=== PATIENT | female | born 1990 | race Caucasian/White ===

== ENCOUNTER → 2018-10-11 19:59 | Outpatient (CLI) | payer SELFPAY | PROVIDERS: Visit Provider Physician Assistant | DX: J02.9 Acute pharyngitis, unspecified (principal) | CPT/HCPCS: 87070 ==

== ENCOUNTER → 2018-12-11 17:23 | Outpatient (CLI) | payer SELFPAY ==
[2018-12-11 21:40] LABS: Urine N gonorrhoeae NOT DETECTED
[2018-12-11 21:58] LABS: Urine Chlamydia NOT DETECTED
== END ==
PROVIDERS: Visit Provider Physician Assistant
DX: N89.8 Other specified noninflammatory disorders of vagina (principal); R30.0 Dysuria
CPT/HCPCS: 87210; 87491; 87591

== ENCOUNTER → 2020-01-10 11:11 | Outpatient (CLI) | payer OTHER, SELFPAY ==
[2020-01-10 11:49] LABS: Specimen Label NATERA
[2020-01-10 12:12] LABS: Appearance Urine UA CLEAR; Bilirubin Urine UA NEGATIVE (NEGATIVE); Color Urine UA YELLOW; Glucose Urine UA NEGATIVE (Negative); Ketones Urine UA NEGATIVE (NEGATIVE); Leukocyte Esterase Urine UA NEGATIVE (NEGATIVE); Nitrite Urine UA NEGATIVE (Negative); Occult Blood Urine UA NEGATIVE (Negative); Protein Urine UA NEGATIVE (Negative); Specific Gravity Urine UA 1.025 (1.000-1.035); Urobilinogen Urine UA 0.2 E.U./dL (0.2)
[2020-01-10 12:19] LABS: pH Urine UA 6.5 (4.5-8.0)
[2020-01-10 12:35] LABS: Add Manual Diff / Slide Review NO; Basophils Absolute Auto 100 /uL (0-100); Basophils Percent Auto 0.6 % (0-2); Eosinophils Absolute Auto 200 /uL (0-450); Eosinophils Percent Auto 1.5 % (2-4); Hemoglobin 12.8 g/dL (12.0-16.0); Lymphocytes Absolute Auto 1800 /uL (1100-4500); Lymphocytes Percent Auto 15.8 % (25-40); Mean Corpuscular HGB Conc 34.5 % (30-36); Mean Corpuscular Hemoglobin 31.2 PG (26-34); Mean Corpuscular Volume 90.3 fL (80-100); Monocytes Absolute Auto 600 /uL (0-900); Neutrophils Absolute Auto 8700 /uL (1500-7000); Neutrophils Percent Auto 77.1 % (50-75); Platelet Count 291 X10^3/uL (150-400); Red Cell Distribution Width 13.2 % (11.6-14.8); White Blood Cell Count 11.3 X10^3/uL (4.5-11.0)
[2020-01-10 16:09] LABS: Hepatitis B Surface Antigen NEGATIVE s/c (NEGATIVE); Rubella Antibody IgG 84.4 IU/mL (>15)
[2020-01-10 16:36] LABS: HIV 1 & 2 Ab/Ag 4th Gen Combo NEGATIVE (NEGATIVE); Hep C Virus Ab w/Reflex Quant NEGATIVE s/c (NEGATIVE)
[2020-01-12 20:54] LABS: RPR Screen Nonreactive (Nonreactive)
== END ==
PROVIDERS: Referring Provider Obstetrics & Gynecology; Visit Provider Obstetrics & Gynecology
DX: Z34.81 Encounter for supervision of other normal pregnancy, first trimester (principal)
CPT/HCPCS: 36415; 80055; 81003; 86787; 86803; 86850; 86900; 86901; 87086; 87389

== ENCOUNTER 2020-02-09 12:05 | Outpatient (CLI) | payer OTHER, SELFPAY ==
--- NOTE | 2020-02-09 13:00 | PM.OBTRLD ---
Visit Information Visit Information Date of evaluation: 02/09/20 Primary OB Provider: Yamileth Pierce On-call OB Provider: Carissa Browning Reason for Evaluation: Yes rupture of membranes Comments/Additional reasons for admission: Patient is 16 weeks and was concerned about leaking of fluid. She called and was prompted to come to the center. Of note, she had a cerclage placed on 02/03/20. The first few days after the cerclage she had some light bleeding. The past 3 or 4 days she has had yellowish discharge without associated itching or foul odor. She was concerned about rupture of membranes. She is monogamous with her and denies concern for sexually transmitted infections. She has also felt a bit crampy since the cerclage but no some amount of that is normal. Vital Signs Vital Signs: Temperature 97.6? blood pressure 108/61 heart rate 75 PFSH Medical History Benign heart murmur (Acute ~2013) Hyperemesis gravidarum (Acute ~2013) Incompetent cervix in (Acute ~2009) Kidney infection (Acute) delivery (Acute) (spontaneous vaginal delivery) (Acute) Surgical History History of cervical cerclage (Acute ~2013) Family History Mother Hyperthyroidism Hypothyroidism Father Hypertension Grandfather Heart disease Grandmother Dementia Tremors of nervous system Grandfather No problems noted. Grandmother No problems noted. 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 ) current occupational exposures/hazards: No special bess needs: No Smoking Status: Never smoker second hand exposure: No alcohol intake: former (non- and occasional) substance use type: does not use and marijuana (former) Evaluation Evaluation Comments: heart tones in the 150s on Doppler Diagnosis, Plan/Disposition Final Diagnosis (1) 16 weeks gestation of : Current Visit: No Status: Acute (2) Cervical cerclage suture present: Current Visit: No Status: Acute (3) Vaginal discharge: Current Visit: No Status: Acute Plan/Disposition Plan: Currently 16 weeks and 2 days with complaints of watery vaginal discharge in the context of cerclage placement a week ago. AmniSure was negative for rupture of membranes. FHT 150s with the doppler. Wet mount showed clue cells so will treat bacterial vaginosis with metronidazole. UA appeared contaminated so was not sent for culture. Patient was sent home and advised to follow-up in clinic next week. OB Disposition: home
[2020-02-09 13:15] LABS: Appearance Urine UA CLOUDY; Bilirubin Urine UA NEGATIVE (NEGATIVE); Color Urine UA YELLOW; Glucose Urine UA NEGATIVE (Negative); Ketones Urine UA NEGATIVE (NEGATIVE); Leukocyte Esterase Urine UA TRACE (NEGATIVE); Nitrite Urine UA NEGATIVE (Negative); Occult Blood Urine UA 1+ (Negative); Protein Urine UA TRACE (Negative); Urobilinogen Urine UA 0.2 E.U./dL (0.2)
[2020-02-09 13:24] LABS: Amorphous Sediment Urine 2+; Bacteria Urine Few (2-10); Culture Indicated Urine Cult Not Indicated; RBC Urine 0-1/HPF (0-5/HPF); Squamous Epithelial Cell Urine 10-30 /HPF (0-5/HPF); Transitional Epi Cells Urine 1-5/HPF (0-5/HPF); WBC Urine 0-1/HPF (0-5/HPF)
== END 2020-02-09 13:10 | disposition home or self-care (01) ==
LOC: LABOR 12:11 → OB 02-10 08:46
PROVIDERS: Family Medicine
DX: O26.892 Other specified pregnancy related conditions, second trimester (principal); N89.8 Other specified noninflammatory disorders of vagina; O34.32 Maternal care for cervical incompetence, second trimester; Z3A.16 16 weeks gestation of pregnancy
CPT/HCPCS: 59025; 81001; 84112; 87210; G0378; G0379

== ENCOUNTER → 2020-03-06 14:09 | Outpatient (CLI) | payer OTHER, SELFPAY ==
--- NOTE | 2020-03-06 14:10 | DI.US.S_ITS ---
PROCEDURE: US OB >= 14 WEEKS FETUS INDICATIONS: 20 WEEK ANATOMY SCAN OUTSIDE/PRIOR DATING DATA: Last menstrual period (LMP): Unknown. LMP-based estimated date of delivery (DORA): Not applicable. First dating scan (date and location): 12/20/19. Estimated date of delivery (DORA) from first dating scan: 07/24/20. TECHNIQUE: Real-time scanning was performed of the fetus, with image documentation and biometric measurements. Endovaginal scanning: Not performed COMPARISON: None. FINDINGS: General: A single living intrauterine gestation is present. Presentation: Vertex. Placenta: Placental position is anterior, without previa. Lower placental edge 2 cm or less from internal cervical os qualifies as low lying placenta. Amniotic fluid index: 15.4 cm, normal range is 5-24 cm. heart rate: 155 beats per minute. Maternal cervical canal: 3.4 cm long. Normal lower limit is 2.5 cm. Report any funneling of internal cervical os: % of canal length, shape (U or V), width or any U-shaped funneling. biometrics: Biparietal diameter: 4.8 cm, correlating with 20 weeks and 4 days Head circumference: 18.5 cm, correlating with 20 weeks and 6 days Abdominal circumference: 16.6 cm, correlating with 21 weeks and 5 days Femur length: 3.3 cm, correlating with 20 weeks and 2 days Estimated gestational age from initial scan: not applicable. Composite gestational age from present scan: 20 weeks and 5 days Estimated weight and percentile: 392 g which [address] the fetus within the 93rd percentile based off gestational age. Measurement variability for biometric dating: +/- 7 days from 14 weeks to 15 weeks 6 days gestation, +/- 10 days from 16 weeks to 21 weeks 6 days gestation, +/- 2 weeks from 22 weeks to 27 weeks 6 days gestation, +/- 3 weeks for 28 weeks gestation or later. weight reference: 4500 g or EFW >90/95% is considered macrosomia or large for gestational age. EFW <10% is small for gestational age. EFW 5% or less is considered intra-uterine growth restriction. Anatomic survey: Neuro: Ventricles are non-dilated at less than 10 mm. Cisterna magna is normal at 3-11 mm. Cerebellum is normal in size and morphology. Nuchal skin fold: Normal at less than 6 mm between 14-21 weeks gestational age. Face: Nose and lips, facial profile are normal. Spine: No evidence for spina bifida. Heart: 4-chambered heart is present, with normal ventricular outflow tracts. Diaphragm: Diaphragm is intact. Stomach: Left-sided stomach is present. Kidneys: No hydronephrosis. Normal is less than 5 mm in 2nd trimester, less than 7 mm in 3rd trimester. Cord: 3-vessel cord has orthotopic insertion. Bladder: Normal in size. Extremities: All 4 extremities identified. IMPRESSION: 1. Single living intrauterine gestation with an estimated sonographic gestational age of approximately 20 weeks and 5 days. Estimated gestation age based off last menstrual period is approximately 20 weeks and 0 days. Dating is concordant. 2. Estimated weight of 392 g which places the fetus within the 93rd percentile based off gestational age. 3. Unremarkable anatomic screening survey. Dictated by: Aryan Price M.D. on 03/06/2020 at 17:09 Approved by: Aryan Price M.D. on 03/06/2020 at 17:14
== END ==
PROVIDERS: Referring Provider Obstetrics & Gynecology; Visit Provider Obstetrics & Gynecology
DX: Z34.82 Encounter for supervision of other normal pregnancy, second trimester (principal); Z3A.20 20 weeks gestation of pregnancy
CPT/HCPCS: 76811

== ENCOUNTER 2020-04-04 17:31 | Emergency (ER) | payer OTHER, SELFPAY ==
[2020-04-04 17:33] VITALS: BP 126/71; PULSE 122; RESP 18; TEMP 36.7; O2SAT 98
[2020-04-04 17:57] LABS: Add Manual Diff / Slide Review NO; Basophils Absolute Auto 100 /uL (0-100); Basophils Percent Auto 0.5 % (0-2); Eosinophils Absolute Auto 100 /uL (0-450); Eosinophils Percent Auto 1.3 % (2-4); Hematocrit 33.9 % (36-46); Lymphocytes Absolute Auto 1800 /uL (1100-4500); Lymphocytes Percent Auto 15.2 % (25-40); Mean Corpuscular HGB Conc 35.5 % (30-36); Mean Corpuscular Hemoglobin 32.3 PG (26-34); Monocytes Absolute Auto 800 /uL (0-900); Monocytes Percent Auto 6.7 % (3-14); Neutrophils Absolute Auto 8800 /uL (1500-7000); Neutrophils Percent Auto 76.3 % (50-75); Platelet Count 325 X10^3/uL (150-400); Red Blood Cell Count 3.72 X10^6/uL (4.0-5.2); Red Cell Distribution Width 13.7 % (11.6-14.8); White Blood Cell Count 11.6 X10^3/uL (4.5-11.0)
[2020-04-04 18:04] LABS: Alanine Aminotransferase 12 IU/L (<35); Albumin 4.1 g/dL (3.5-5.0); Albumin Globulin Ratio 1.2 (1.0-2.8); Alkaline Phosphatase 60 U/L (38-126); Aspartate Aminotransferase 21 IU/L (14-36); Bilirubin Total 0.2 mg/dL (0.2-1.3); Blood Urea Nitrogen 9 mg/dL (7-17); Calcium 9.8 mg/dL (8.4-10.2); Carbon Dioxide 22 mmol/L (22-32); Chloride 105 mmol/L (98-107); Estimated Glomerular Filt Rate > 60.0 mL/min (>60); Globulin 3.4 g/dL (1.7-4.1); Glucose 106 mg/dL (70-100); HEMOLYSIS < 15 (0-50); Lipase 94 U/L (23-300); Potassium 4.3 mmol/L (3.4-5.1); Sodium 136 mmol/L (137-145); Total Protein 7.5 g/dL (6.3-8.2)
--- NOTE | 2020-04-04 18:07 | ED.ABDPAIN ---
HPI - Abdominal Pain General Chief Complaint: Abdominal Pain Stated Complaint: Possible gall bladder issue, abdominal pain Time Seen by Provider: 04/04/20 18:05 Source: patient Mode of arrival: Ambulatory Limitations: no limitations History of Present Illness HPI narrative: 29-year-old female daily smoker is at 24 weeks with chief complaint of right upper quadrant pain that started this morning after eating a breakfast of [employer]. She states that for much of her she was at episodes of nausea that initially were treated with Zofran and now a combination of vitamin-B and Unisom which she states works better. She denies that use of alcohol and has never had a diagnosis of gallbladder disease. She states her pain is worse when she moves and improves with rest. She denies associated fever chills. She has no dysuria, frequency or urgency. She has no constipation or diarrhea. She denies any vaginal bleeding, discharge or leakage of fluid. Her OB is Dr. Pierce. complaint: abdominal pain Onset (ago): hour(s) Pain Consistency: constant Location: RUQ Severity: moderate Quality: cramping and stabbing Radiation: back Migration to: no migration Relieving factors: rest Exacerbating factors: eating and movement Associated symptoms: nausea Related Data Home Medications Medication Instructions Recorded Confirmed prenat.vits,mati,[id number] 1 tab PO BEDTIME 12/14/19 04/04/20 pyridoxine (vitamin B6) 25 mg 25 mg PO BEDTIME 12/14/19 04/04/20 tablet doxylamine succinate [Unisom 25 mg PO BEDTIME PRN 04/04/20 04/04/20 (doxylamine)] Allergies Allergy/AdvReac Type Severity Reaction Status Date / Time No Known Drug Allergies Allergy Verified 12/14/19 15:40 Review of Systems Constitutional Constitutional: Denies chills, Denies fatigue, Denies fever(s), Denies frequent falls, Denies lethargy and Denies weakness Eyes Eyes: Denies change in vision, Denies eye discharge, Denies irritation and Denies loss of vision ENT Ears, Nose, Mouth, and Throat: Denies change in voice, Denies dizziness, Denies neck pain, Denies sore throat and Denies throat swelling Cardiovascular Cardiovascular: Denies chest pain, Denies irregular heart rhythm, Denies lightheadedness, Denies palpitations, Denies dyspnea, Denies dyspnea on exertion and Denies orthopnea Respiratory Respiratory: Denies cough, Denies dyspnea, Denies dyspnea on exertion and Denies wheezing Gastrointestinal Gastrointestinal: Reports abdominal pain, Denies change in bowel habits, Denies diarrhea, Reports nausea and Denies vomiting Genitourinary Genitourinary: Denies hematuria, Denies flank pain, Denies urinary incontinence and Denies urinary urgency Musculoskeletal Musculoskeletal: Denies back pain, Denies muscle weakness, Denies neck pain, Denies numbness and Denies tingling Integumentary/Breasts Skin/Breast: Denies pruritus, Denies erythema, Denies rash and Denies wounds Neurologic Neurologic: Denies behavioral changes, Denies confusion, Denies dizziness, Denies frequent falls, Denies loss of vision, Denies numbness, Denies tingling and Denies weakness Psychiatric Psychiatric: Denies anxiety, Denies behavioral changes, Denies confusion, Denies depression, Denies homicidal ideation and Denies suicidal ideation Endocrine Endocrine: Denies fatigue, Denies flushing and Denies palpitations Hematologic/Lymphatic Hematologic/Lymphatic: Denies easy bruising Allergic/Immunologic Allergic/Immunologic: Denies urticaria, Denies throat swelling and Denies wheezing Patient History Medical History Benign heart murmur (Acute ~2013) Hyperemesis gravidarum (Acute ~2013) Incompetent cervix in (Acute ~2009) Kidney infection (Acute) delivery (Acute) (spontaneous vaginal delivery) (Acute) Surgical History History of cervical cerclage (Acute ~2013) Family History Mother Hyperthyroidism Hypothyroidism Father Hypertension Grandfather Heart disease Grandmother Dementia Tremors of nervous system Grandfather No problems noted. Grandmother No problems noted. 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 Well-nourished, well-developed patient, in mild distress. Obviously uncomfortable, rubbing her right upper belly HEAD: Atraumatic. Normocephalic. EYES: Pupils equal round and reactive. Extraocular motions intact. No scleral icterus. No injection or drainage. ENT: Nose without bleeding, purulent drainage. Throat without erythema, tonsillar hypertrophy or exudate. Airway patent. NECK: Trachea midline. Non tender CARDIOVASCULAR: Regular rate and rhythm without murmurs, gallops, or rubs. RESPIRATORY: Clear to auscultation. Breath sounds equal bilaterally. No wheezes, rales, or rhonchi. GASTROINTESTINAL: Abdomen soft, gravid above umbilicus, RUQ tender to palp. EXTREMITIES: No edema or joint tenderness. BACK: Nontender without deformity or crepitance. No flank tenderness. NEURO: AOx3. SKIN: No rash or erythema of visible areas Initial Vital Signs Initial Vital Signs: Vital Signs Temperature 98.0 F 04/04/20 17:33 Pulse Rate 122 H 04/04/20 17:33 Respiratory Rate 18 04/04/20 17:33 Blood Pressure 126/71 04/04/20 17:33 Pulse Oximetry 98 04/04/20 17:33 Course Orders Ordered: ED Orders 04/04/20 18:23 US abdomen limited Stat Discontinued Medications Sodium Chloride (Normal Saline 0.9%) 1,000 mls @ 150 mls/hr IV CONT TRICIA Last Infusion: 04/04/20 19:19 Dose: 0 mls/hr Documented by: Infusion: 04/04/20 18:56 Dose: 999 mls/hr Documented by: Admin: 04/04/20 18:19 Dose: 150 mls/hr Documented by: RALPH Vital Signs Vital signs: Vital Signs - 8 hr 04/04/20 18:58 Pulse Rate 79 Respiratory Rate 14 Blood Pressure [Left Arm] 114/70 Pulse Oximetry 99 MDM - Abdominal Pain Lab Data Result diagrams: 04/04/20 17:53 04/04/20 17:53 Labs: Lab Results 04/04/20 04/04/20 Range/Units 17:53 17:53 WBC 11.6 H (4.5-11.0) X10^3/uL RBC 3.72 L (4.0-5.2) X10^6/uL Hgb 12.0 (12.0-16.0) g/dL Hct 33.9 L (36-46) % MCV 91.0 (80-100) fL MCH 32.3 (26-34) PG MCHC 35.5 (30-36) % RDW 13.7 (11.6-14.8) % Plt Count 325 (150-400) X10^3/uL Neut % (Auto) 76.3 H (50-75) % Lymph % (Auto) 15.2 L (25-40) % [place] % (Auto) 6.7 (3-14) % Eos % (Auto) 1.3 L (2-4) % Baso % (Auto) 0.5 (0-2) % Neut # (Auto) 8800 H (8343-0647) /uL Lymph # (Auto) 1800 (1577-9322) /uL [place] # (Auto) 800 (0-900) /uL Eos # (Auto) 100 (0-450) /uL Baso # (Auto) 100 (0-100) /uL Sodium 136 L (137-145) mmol/L Potassium 4.3 (3.4-5.1) mmol/L Chloride 105 (98-107) mmol/L Carbon Dioxide 22 (22-32) mmol/L BUN 9 (7-17) mg/dL Creatinine 0.45 L (0.52-1.04) mg/dL Estimated GFR > 60.0 (>60) mL/min BUN/Creatinine Ratio 20.0 (6-22) Glucose 106 H (70-100) mg/dL Calcium 9.8 (8.4-10.2) mg/dL Total Bilirubin 0.2 (0.2-1.3) mg/dL AST 21 (14-36) IU/L ALT 12 (<35) IU/L Alkaline Phosphatase 60 (38-126) U/L Total Protein 7.5 (6.3-8.2) g/dL Albumin 4.1 (3.5-5.0) g/dL Globulin 3.4 (1.7-4.1) g/dL Albumin/Globulin Ratio 1.2 (1.0-2.8) Lipase 94 (23-300) U/L Discharge Plan Departure Patient Disposition: Home Clinical Impression: Gallbladder pain Discharge Date/Time: 04/04/20 19:21 Instructions: Acute Abdominal Pain Activity Restrictions/Additional Instructions: *You have been diagnosed with [ Right upper quadrant pain, likely relating to gallbladder.] *What to do: *Continue to take medications as directed. Avoid fatty foods as they will likely trigger similar episodes *Follow up with your primary care provider in 2-3 days, call for an appointment. Let them know you were seen in the Emergency Department and that we ask that you be seen in follow up *Return to ER if you should have any new, worsening or concerning symptoms Prescriptions: No Action prenat.vits,mati,[id number] Tablet 1 tab PO BEDTIME RF: 0 pyridoxine (vitamin B6) 25 mg tablet 25 mg PO BEDTIME RF: 0 Unisom (doxylamine) 25 mg Tablet 25 mg PO BEDTIME PRN (Reason: Insomnia) RF: 0 Referrals: Krystina Pulliam MD [Physician] -
[2020-04-04] MEDS: SODIUM CHLORIDE 0.9% 1,000 ML 150 ML IV (18:19)
--- NOTE | 2020-04-04 18:23 | DI.US.S_ITS ---
PROCEDURE: US ABDOMEN LIMITED INDICATIONS: RIGHT UPPER QUADRANT PAIN TECHNIQUE: Real-time scanning was performed of the abdominal and retroperitoneal organs, with image documentation. COMPARISON: [facility], US, US OB >= 14 WEEKS FETUS, 03/06/2020, 14:22. FINDINGS: Liver: Liver is normal in size and homogeneous in echotexture. Gallbladder: Nondilated. No stones or sludge. Normal gallbladder wall thickness. No pericholecystic fluid. Negative sonographic Montgomery's sign. Biliary ducts: Intrahepatic bile ducts are non-dilated. Extrahepatic bile duct caliber measures 4 mm. Normal is 6-7 mm or less in diameter, or 10 mm or less post-cholecystectomy. Pancreas: Visualized portions of the pancreas are sonographically normal. Kidneys: No right kidney hydronephrosis. Miscellaneous: Gravid uterus. Coon living intrauterine . heart rate 157 bpm. IMPRESSION: 1. No acute cholecystitis. No gallstones. 2. Coon living intrauterine at approximately 24 weeks. heart rate 157 bpm. Dictated by: Sean Jara M.D. on 04/04/2020 at 19:46 Approved by: Sean Jara M.D. on 04/04/2020 at 19:49
[2020-04-04 18:58] VITALS: BP 114/70; PULSE 79; RESP 14; O2SAT 99
== END 2020-04-04 19:21 | disposition home or self-care (01) ==
PROVIDERS: Emergency Medicine; Emergency Provider Emergency Medicine
DX: R10.11 Right upper quadrant pain (principal)
CPT/HCPCS: 36415; 76705; 80053; 83690; 85025; 96360; 99284

== ENCOUNTER → 2020-05-02 14:17 | Outpatient (CLI) | payer OTHER, SELFPAY ==
[2020-05-02 16:16] LABS: Hemoglobin 10.9 g/dL (12.0-16.0)
[2020-05-02 16:58] LABS: GTT (PREG) 1 Hour PP 50gm Dose 120 mg/dL (76-139)
== END ==
PROVIDERS: Referring Provider Obstetrics & Gynecology; Visit Provider Obstetrics & Gynecology
DX: Z34.82 Encounter for supervision of other normal pregnancy, second trimester (principal); Z3A.24 24 weeks gestation of pregnancy
CPT/HCPCS: 36415; 82950; 85014; 85018

== ENCOUNTER → 2020-05-16 14:08 | Outpatient (CLI) | payer OTHER, SELFPAY ==
[2020-05-16 16:00] LABS: Alanine Aminotransferase 13 IU/L (<35); Albumin 3.9 g/dL (3.5-5.0); Albumin Globulin Ratio 1.3 (1.0-2.8); Alkaline Phosphatase 76 U/L (38-126); Aspartate Aminotransferase 21 IU/L (14-36); BUN Creatinine Ratio 17.9 (6-22); Bilirubin Total 0.2 mg/dL (0.2-1.3); Blood Urea Nitrogen 10 mg/dL (7-17); Calcium 9.5 mg/dL (8.4-10.2); Carbon Dioxide 20 mmol/L (22-32); Chloride 105 mmol/L (98-107); Estimated Glomerular Filt Rate > 60.0 mL/min (>60); Globulin 2.9 g/dL (1.7-4.1); Glucose 106 mg/dL (70-100); HEMOLYSIS < 15 (0-50); Potassium 4.2 mmol/L (3.4-5.1); Sodium 134 mmol/L (137-145); Total Protein 6.8 g/dL (6.3-8.2)
[2020-05-17 09:08] LABS: Bile Acids 3.4 umol/L (0.0-10.0)
== END ==
PROVIDERS: Referring Provider Obstetrics & Gynecology; Visit Provider Obstetrics & Gynecology
DX: Z34.90 Encounter for supervision of normal pregnancy, unspecified, unspecified trimester (principal)
CPT/HCPCS: 36415; 80053; 82239

== ENCOUNTER → 2020-05-30 15:26 | Outpatient (ROUT) | payer OTHER, SELFPAY ==
[2020-05-31 11:36] LABS: Candida species Negative (Negative); Gardnerella vaginalis Positive (Negative); Trichomoas vaginalis Negative (Negative)
== END ==
PROVIDERS: Visit Provider Obstetrics & Gynecology
DX: N89.8 Other specified noninflammatory disorders of vagina (principal)
CPT/HCPCS: 87480; 87510; 87660

== ENCOUNTER → 2020-06-19 11:20 | Outpatient (CLI) | payer OTHER, SELFPAY ==
[2020-06-19 13:13] LABS: Add Manual Diff / Slide Review NO; Basophils Absolute Auto 100 /uL (0-100); Basophils Percent Auto 0.4 % (0-2); Eosinophils Absolute Auto 100 /uL (0-450); Eosinophils Percent Auto 0.9 % (2-4); Hematocrit 31.6 % (36-46); Hemoglobin 10.9 g/dL (12.0-16.0); Lymphocytes Absolute Auto 1900 /uL (1100-4500); Lymphocytes Percent Auto 13.7 % (25-40); Mean Corpuscular HGB Conc 34.6 % (30-36); Mean Corpuscular Hemoglobin 30.1 PG (26-34); Mean Corpuscular Volume 87.1 fL (80-100); Monocytes Absolute Auto 1000 /uL (0-900); Monocytes Percent Auto 7.4 % (3-14); Neutrophils Absolute Auto 10600 /uL (1500-7000); Neutrophils Percent Auto 77.6 % (50-75); Platelet Count 323 X10^3/uL (150-400); Red Blood Cell Count 3.63 X10^6/uL (4.0-5.2); White Blood Cell Count 13.6 X10^3/uL (4.5-11.0)
[2020-06-19 13:57] LABS: TSH w/ Reflex to FT4 4.45 uIU/mL (0.47-4.68)
[2020-06-20 13:46] LABS: Strep Grp B PCR NEG for Grp B Strep
== END ==
PROVIDERS: Referring Provider Obstetrics & Gynecology; Visit Provider Obstetrics & Gynecology
DX: Z34.83 Encounter for supervision of other normal pregnancy, third trimester (principal); R00.2 Palpitations; Z3A.35 35 weeks gestation of pregnancy
CPT/HCPCS: 36415; 84443; 85025; 87653

== ENCOUNTER 2020-06-26 08:59 | Observation (INO) | payer OTHER, SELFPAY ==
--- NOTE | 2020-06-26 09:33 | PM.OBTRLD ---
[facility] Medical History (Updated 04/19/20 @ 00:00 by ) Benign heart murmur (Acute ~2013) Hyperemesis gravidarum (Acute ~2013) Incompetent cervix in (Acute ~2009) Kidney infection (Acute) delivery (Acute) (spontaneous vaginal delivery) (Acute) Surgical History History of cervical cerclage (Acute ~2013) Family History Mother Hyperthyroidism Hypothyroidism Father Hypertension Grandfather Heart disease Grandmother Dementia Tremors of nervous system Grandfather No problems noted. Grandmother No problems noted. 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
--- NOTE | 2020-06-26 10:12 | P.HPOB_ITS ---
OB HPI Date/Time Date of admission: 06/26/20 Date Patient Seen: 06/26/20 Time Patient Seen: 10:00 History of Present Condition Chief complaint: Observation of labor : 4 Para: 2 Estimated Gestational Age (weeks): 36 Narrative: Sho Perkins is a 29 year old at 36 weeks 0 days, with a cerclage in place and presenting for cerclage removal. She reports intermittent contractions, good movement, no vaginal bleeding or loss of fluid, and occasional unchanged palpitations status post evaluation last week. The patient has a history of cervical incompetence, and had a cerclage placed at 16 weeks gestation by [facility]. She has had an otherwise uncomplicated , declining making a with this . Her 1st was a 36 week delivery after labor, and her 2nd delivery was at 38 weeks, with a cerclage and a cane and that . Her pregnancies have been otherwise uncomplicated. She had L BRADLEY on her initial OB Pap smear, KRAIG 1 colpo, and is planned for repeat Pap smear . Indications Other reason(s) for admission: Requires cerclage removal in the OR. History of Present care: good care Dating criteria: LMP confirmed by 1st trimester US Ultrasounds: normal 1st trimester US and normal mid trimester US Obstetrical complications: other (History of incompetent cervix) Preadmission Labs Blood type: O (+) positive -: Antibody screen: negative, GBS status: negative, HBsAG: negative, HIV: negative and RPR/VDLR: negative -: Rubella: immune and Varicella: immune PAP: Abnormal 1 hr GTT: 120 Evaluation Evaluation Variability: Average (6-10) monitor accelerations: Present monitor decelerations: Absent Contraction Frequency (minutes): 145 PFSH Medical History Benign heart murmur (Acute ~2013) Hyperemesis gravidarum (Acute ~2013) Incompetent cervix in (Acute ~2009) Kidney infection (Acute) delivery (Acute) (spontaneous vaginal delivery) (Acute) Surgical History History of cervical cerclage (Acute ~2013) Family History Mother Hyperthyroidism Hypothyroidism Father Hypertension Grandfather Heart disease Grandmother Dementia Tremors of nervous system Grandfather No problems noted. Grandmother No problems noted. 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 ) current occupational exposures/hazards: No special bess needs: No Smoking Status: Current every day smoker second hand exposure: No alcohol intake: former (non- and occasional) substance use type: does not use and marijuana (former) Meds Home Medications and Allergies Home Medications Medication Instructions Recorded Confirmed Type prenat.vits,mati,ply-[id number] 1 tab PO BEDTIME 12/14/19 04/04/20 History pyridoxine (vitamin B6) 25 mg 25 mg PO BEDTIME 12/14/19 04/04/20 History tablet doxylamine succinate [Unisom 25 mg PO BEDTIME PRN 04/04/20 04/04/20 History (doxylamine)] metronidazole 500 mg tablet 500 mg PO BID #14 tab 06/01/20 Rx Allergies Allergy/AdvReac Type Severity Reaction Status Date / Time No Known Drug Allergies Allergy Verified 12/14/19 15:40 Review of Systems Constitutional Constitutional: Reports system reviewed and no additional complaints, except as documented Cardiovascular Cardiovascular: Reports as per HPI Respiratory Respiratory: Reports system reviewed and no additional complaints, except as documented Gastrointestinal Gastrointestinal: Reports system reviewed and no additional complaints, except a s documented Genitourinary Genitourinary: Reports system reviewed and no additional complaints, except as documented Exam Vital Signs (past 8 hours): 112/63, HR 77 GI Palpation: soft and No tender External Female Exam: normal external appearance Speculum Exam - Vagina: normal appearance of the vagina Speculum Exam - Cervix: other (cervix irregular, cerclage in place) Extrem General: normal to inspection Objective Labs Result Diagrams: 06/26/20 10:30 Assessment and Plan Assessment and Plan Assessment and Plan narrative: Due to the difficulty visualizing and removing the patient's cerclage in labor and delivery, she was consented for removal in the OR under spinal anesthesia. Plan is for removal followed by recovery in the center with prolonged monitoring, with discharge anticipated later today. - NPO - Stat covid test, CBC and T&S - LR@100ccs/hr - cEFM, toco
[2020-06-26 10:41] LABS: Add Manual Diff / Slide Review NO; Basophils Absolute Auto 100 /uL (0-100); Eosinophils Absolute Auto 200 /uL (0-450); Eosinophils Percent Auto 1.3 % (2-4); Hematocrit 29.2 % (36-46); Lymphocytes Absolute Auto 2100 /uL (1100-4500); Lymphocytes Percent Auto 15.6 % (25-40); Mean Corpuscular HGB Conc 34.3 % (30-36); Mean Corpuscular Volume 87.5 fL (80-100); Monocytes Absolute Auto 1300 /uL (0-900); Monocytes Percent Auto 9.4 % (3-14); Neutrophils Absolute Auto 10000 /uL (1500-7000); Neutrophils Percent Auto 72.7 % (50-75); Platelet Count 299 X10^3/uL (150-400); Red Blood Cell Count 3.34 X10^6/uL (4.0-5.2); White Blood Cell Count 13.7 X10^3/uL (4.5-11.0)
[2020-06-26 11:17] LABS: COVID19 -Nasal RAPID Negative (Negative)
[2020-06-26] MEDS: LACTATED RINGERS 1,000 ML 100 ML IV (11:50)
--- NOTE | 2020-06-26 11:57 | PM.PREOP ---
Pre-operative Note COVID-19 COVID-19 status: Result pending Result date/Date tested (Pos, Neg/Pending): 06/26/20 Interval Note History & Physical reviewed/Exam performed by Physician: Yes Changes to H&P: No
--- NOTE | 2020-06-26 12:39 | SUR.OPER ---
Lithotomy on padded OR bed, head on pillow, arms secured on padded arm boards at <90 degrees abduction. Legs secured in padded yellow fins stirrups.
[2020-06-26 13:01] VITALS: BP 105/66; PULSE 102; RESP 16; TEMP 36.1; O2SAT 98
[2020-06-26 13:06] VITALS: BP 89/62; PULSE 89; RESP 12; O2SAT 99
[2020-06-26 13:11] VITALS: BP 106/77; PULSE 79; RESP 16; O2SAT 98
[2020-06-26 13:18] VITALS: BP 107/69; PULSE 89; RESP 20; O2SAT 100
--- NOTE | 2020-06-26 13:18 | P.OP_ITS ---
Operative Date/Time/Diagnoses Date of procedure: 06/26/20 Time of procedure: 13:19 Pre-op diagnosis: cervical cerclage in situ Post-op diagnosis: other (cervical cerclage removed) Procedure & Clinicians Procedure: cerclage removal Same procedure as scheduled: Yes Indications: 36 weeks gestation Surgeon: Yamileth Pierce Window Trimmer Apprentice: Gloria Muir Anesthesia Type: Spinal Operative Notes Findings: cervical cerclage partially eroded through cervical mucosa. Specimen(s): none sent Estimated Blood Loss (mL): 10 Procedure in detail: Cerclage removal was attempted in labor and delivery, but was not tolerated by the patient. After informed consent was obtained, she was taken to the operating room where spinal anesthesia was placed and found to be adequate. She was placed in the dorsal lithotomy position and draped in the usual fashion. Digital exam was performed and the knot of the cerclage was pal pable at 5 o clock on the cervix. A weighted speculum was placed into the vagina, and right angle retractors used to retract the vaginal sidewalls. A ring forceps was used to grasp and stabilize the anterior lip of the cervix, an Allis clamp was used to grasp the knot of mersilene tape, and the knot gently teased from where it had been embedded in the epithelium of the cervix. The tape was cut just below the knot, and the mersiline tape gently teased from around the cervix. A moderate amount of bleeding was noted from the site of the embedded knot, but resolved with a few minutes of gentle pressure with a sponge stick. The patient was taken to labor and delivery for monitoring, anticipating discharge when the spinal anesthesia has abated. Complications: none Post-operative Condition: stable Disposition: PACU Plan for aftercare: Transfer to labor and delivery
[2020-06-26] MEDS: LACTATED RINGERS 1,000 ML 500 ML IV (13:36)
--- NOTE | 2020-06-26 18:03 | P.PN_ITS ---
Subjective Subjective Date Patient Seen: 06/26/20 Time Patient Seen: 18:03 Interval history: Patient reports pain is 2-3/10 but contractions less frequent, mild spotting, no LOF, +FM. Patient able to ambulate, voiding trial underway. Exam Vital Signs (past 8 hours): - 06/26/20 13:01 06/26/20 13:06 06/26/20 13:11 Temperature 97.0 F L Pulse Rate 102 H 89 79 Respiratory Rate 16 12 16 Blood Pressure 105/66 89/62 L 106/77 Pulse Oximetry 98 99 98 06/26/20 13:18 Temperature Pulse Rate 89 Respiratory Rate 20 Blood Pressure 107/69 Pulse Oximetry 100 Oxygen Delivery Method Room Air Narrative Exam Narrative: Cat 1 EFM, baseline 150, mod varability, accels. ctx initially q2, now more irregular. Objective Labs Result Diagrams: 06/26/20 10:30 Labs: Laboratory Results - last 24 hr 06/26/20 06/26/20 06/26/20 10:20 10:30 10:30 WBC 13.7 H RBC 3.34 L Hgb 10.0 L Hct 29.2 L MCV 87.5 MCH 30.0 MCHC 34.3 RDW 14.0 Plt Count 299 Neut % (Auto) 72.7 Lymph % (Auto) 15.6 L [place] % (Auto) 9.4 Eos % (Auto) 1.3 L Baso % (Auto) 1.0 Neut # (Auto) 81123 H Lymph # (Auto) 2100 [place] # (Auto) 1300 H Eos # (Auto) 200 Baso # (Auto) 100 COVID-19 PCR Negative Blood Type O Positive Antibody Screen Negative Assessment & Plan Assessment & Plan narrative: home with precautions and scheduled clinic follow up.
== END 2020-06-26 18:30 | disposition home or self-care (01) ==
PROVIDERS: Admitting Provider Obstetrics & Gynecology; Referring Provider Obstetrics & Gynecology; Visit Provider Obstetrics & Gynecology
PROC: 0UVC7ZZ Restriction of Cervix, Via Natural or Artificial Opening (ICD-10-PCS; CPT 57700; principal; 2020-06-26 12:15)
DX: O34.33 Maternal care for cervical incompetence, third trimester (principal); Z3A.36 36 weeks gestation of pregnancy; Z11.59 Encounter for screening for other viral diseases
CPT/HCPCS: 59871; 59025; 59050; 76815; 85025; 86850; 86900; 86901; 87635; G0378; G0379; J2250; J2704; J3010

== ENCOUNTER 2020-07-09 15:17 | Outpatient (CLI) | payer OTHER, SELFPAY ==
--- NOTE | 2020-07-09 17:15 | PM.OBTRLD ---
Visit Information Visit Information Date of evaluation: 07/09/20 Primary OB Provider: Yamileth Pierce Reason for Evaluation: Yes non-stress test Comments/Additional reasons for admission: Patient is a 29-year-old sent over from clinic for decreased movement at 38 weeks. Vital Signs Vital Signs: 109/59 [facility] Medical History Benign heart murmur (Acute ~2013) Hyperemesis gravidarum (Acute ~2013) Incompetent cervix in (Acute ~2009) Kidney infection (Acute) delivery (Acute) (spontaneous vaginal delivery) (Acute) Surgical History History of cervical cerclage (Acute ~2013) Family History Mother Hyperthyroidism Hypothyroidism Father Hypertension Grandfather Heart disease Grandmother Dementia Tremors of nervous system Grandfather No problems noted. Grandmother No problems noted. Social History marital status: household members: spouse and children pets and animals: Yes (X 1 dog and X 1 cat) education level: high school occupational status: employed ([employer] ) current occupational exposures/hazards: No special bess needs: No Smoking Status: Current every day smoker second hand exposure: No alcohol intake: former (non- and occasional) substance use type: does not use and marijuana (former) Review of Systems Constitutional Constitutional: Reports system reviewed and no additional complaints, except as documented Exam Const General: cooperative, healthy appearing and comfortable Evaluation Evaluation Baseline heart rate: 145 Variability: Average (6-10) monitor accelerations: Present monitor decelerations: Absent Category of Tracing: Reactive Diagnosis, Plan/Disposition Plan/Disposition Plan: Home with antepartum precautions and scheduled follow-up. OB Disposition: home
== END 2020-07-09 15:46 | disposition home or self-care (01) ==
LOC: LABOR 15:23 → OB 07-10 09:28
PROVIDERS: Admitting Provider Obstetrics & Gynecology; PCP Obstetrics & Gynecology; Referring Provider Obstetrics & Gynecology; Visit Provider Obstetrics & Gynecology
DX: O36.8130 Decreased fetal movements, third trimester, not applicable or unspecified (principal); Z3A.38 38 weeks gestation of pregnancy
CPT/HCPCS: 59025; G0378; G0379

== ENCOUNTER 2020-07-11 11:01 | Inpatient (IN) | payer OTHER, SELFPAY ==
[2020-07-11 12:35] VITALS: BP 120/72
[2020-07-11 13:11] LABS: COVID19 -Nasal RAPID Negative (Negative)
[2020-07-11] MEDS: LACTATED RINGERS 1,000 ML 100 ML IV ×2 (16:15→17:56)
[2020-07-11 18:05] LABS: Add Manual Diff / Slide Review NO; Basophils Absolute Auto 0 /uL (0-100); Basophils Percent Auto 0.3 % (0-2); Eosinophils Absolute Auto 100 /uL (0-450); Eosinophils Percent Auto 0.5 % (2-4); Hematocrit 32.3 % (36-46); Hemoglobin 10.8 g/dL (12.0-16.0); Lymphocytes Absolute Auto 1900 /uL (1100-4500); Lymphocytes Percent Auto 14.1 % (25-40); Mean Corpuscular HGB Conc 33.5 % (30-36); Mean Corpuscular Hemoglobin 29.4 PG (26-34); Mean Corpuscular Volume 87.8 fL (80-100); Monocytes Absolute Auto 900 /uL (0-900); Monocytes Percent Auto 7.1 % (3-14); Neutrophils Absolute Auto 10300 /uL (1500-7000); Platelet Count 310 X10^3/uL (150-400); Red Blood Cell Count 3.68 X10^6/uL (4.0-5.2); Red Cell Distribution Width 14.7 % (11.6-14.8); White Blood Cell Count 13.2 X10^3/uL (4.5-11.0)
[2020-07-11] MEDS: ePHEDrine 50 MG/5 ML SYRINGE 10 MG IV (19:26)
[2020-07-11] MEDS: OXYTOCIN PREMIX 30 UNIT/500 ML PLAST..BAG IV (19:49)
--- NOTE | 2020-07-11 21:55 | P.HPOB_ITS ---
OB HPI Date/Time Date of admission: 07/11/20 Date Patient Seen: 07/11/20 Time Patient Seen: 17:00 History of Present Condition Chief complaint: NST : 4 Para: 2 Estimated Date of Delivery: 07/24/20 Estimated Gestational Age (weeks): 38+1 Narrative: Sho Perkins is a 29 year old female 4 para 2 at 38-,1/7 weeks gestation who presented in early to active labor History of Present care: good care, initiated at week # (8) and number of visits (12) Dating criteria: LMP confirmed by 1st trimester US Ultrasounds: normal 1st trimester US and normal mid trimester US Obstetrical complications: hyperemesis and other (Incompetent cervix. Cerclage placed) Medical complications: none Preadmission Labs Blood type: O (+) positive -: Antibody screen: negative, GBS status: negative, HBsAG: negative, HIV: negative and RPR/VDLR: negative -: Rubella: immune and Varicella: immune HCT: 32 PAP: Abnormal Cell-free DNA: normal male 1 hr GTT: 120 Prior (ies) History: 1 at 36 wks, 1 at 38 wks, 1 Sab Evaluation Evaluation Baseline heart rate: 130 Variability: Moderate (11-25) monitor accelerations: Present monitor decelerations: Absent Contraction Frequency (minutes): 4 Uterine Contraction Intensity: Moderate Category of Tracing: Reactive Cervical dilation (cm): 4 Cervical effacement (%): 80 station: 0 Laboratory results: Laboratory Tests 07/11/20 07/11/20 07/11/20 12:10 17:00 17:00 WBC 13.2 H RBC 3.68 L Hgb 10.8 L Hct 32.3 L MCV 87.8 MCH 29.4 MCHC 33.5 RDW 14.7 Plt Count 310 Neut % (Auto) 78.0 H Lymph % (Auto) 14.1 L [place] % (Auto) 7.1 Eos % (Auto) 0.5 L Baso % (Auto) 0.3 Neut # (Auto) 95930 H Lymph # (Auto) 1900 [place] # (Auto) 900 Eos # (Auto) 100 Baso # (Auto) 0 COVID-19 PCR Negative Blood Type O Positive Antibody Screen Negative [facility] Medical History Benign heart murmur (Acute ~2013) Hyperemesis gravidarum (Acute ~2013) Incompetent cervix in (Acute ~2009) Kidney infection (Acute) delivery (Acute) (spontaneous vaginal delivery) (Acute) Surgical History History of cervical cerclage (Acute ~2013) Family History Mother Hyperthyroidism Hypothyroidism Father Hypertension Grandfather Heart disease Grandmother Dementia Tremors of nervous system Grandfather No problems noted. Grandmother No problems noted. Social History marital status: household members: spouse and children pets and animals: Yes (X 1 dog and X 1 cat) education level: high school occupational status: employed ([employer] ) current occupational exposures/hazards: No special bess needs: No Smoking Status: Former smoker second hand exposure: No alcohol intake: former (non- and occasional) substance use type: does not use and marijuana (former) Meds Home Medications and Allergies Home Medications Medication Instructions Recorded Confirmed Type prenat.vits,mati,[id number] 1 tab PO BEDTIME 12/14/19 04/04/20 History pyridoxine (vitamin B6) 25 mg 25 mg PO BEDTIME 12/14/19 04/04/20 History tablet Unisom (doxylamine) 25 mg PO BEDTIME PRN 04/04/20 04/04/20 History metronidazole 500 mg tablet 500 mg PO BID #14 tab 06/01/20 Rx ondansetron 4 mg PO Q8H PRN #30 tab 06/26/20 Rx Allergies Allergy/AdvReac Type Severity Reaction Status Date / Time No Known Drug Allergies Allergy Verified 12/14/19 15:40 Exam Vital Signs (past 8 hours): Generally: Patient in mild distress secondary to contract Lungs: Clear to auscultation bilaterally Cardiovascular: Regular rate and rhythm Fundal height: 39 cm Estimated weight 7-1/2 lb Extremities: Trace edema, negative Homans, 1+ DTRs Objective Labs Result Diagrams: 07/11/20 17:00 Labs: Laboratory Results - last 24 hr 07/11/20 07/11/20 07/11/20 12:10 17:00 17:00 WBC 13.2 H RBC 3.68 L Hgb 10.8 L Hct 32.3 L MCV 87.8 MCH 29.4 MCHC 33.5 RDW 14.7 Plt Count 310 Neut % (Auto) 78.0 H Lymph % (Auto) 14.1 L [place] % (Auto) 7.1 Eos % (Auto) 0.5 L Baso % (Auto) 0.3 Neut # (Auto) 81695 H Lymph # (Auto) 1900 [place] # (Auto) 900 Eos # (Auto) 100 Baso # (Auto) 0 COVID-19 PCR Negative Blood Type O Positive Antibody Screen Negative Assessment and Plan Assessment and Plan Assessment and Plan narrative: Assessment: 29-year-old 4 para 2 at 38-,1/7 weeks gestation in early to active labor Plan: Epidural Artificial rupture membranes once epidural placed Expected management to spontaneous vaginal delivery Time Spent with Patient Total time spent with greater than 50% in coordination of care (as documented) at patient's floor/unit and/or counseling patient:: 15-24 minutes
--- NOTE | 2020-07-11 22:22 | P.PCNOB_ITS ---
Events: Labor Augmentation Labor & Delivery Delivery date: 07/11/20 Cervical ripening method: none Induction method: none Delivery augmentation: rupture of membranes Delivery monitor: external FHT and external uterine Route of delivery: Episiotomy description: None L&D Laceration Description: None Estimated blood loss (mL): 50 Anesthesia type: Epidural Complications: None Narrative: Patient complete and pushed with 3 contractions. At 10:04 p.m., a live male infant delivered spontaneously in the TOM presentation. Nuchal cord x1 that was loose was reduced on the perineum. The remainder of the body delivered without difficulty and was placed on mom's abdomen. The cord was double clamped and cut. Cord bloods were obtained. Placenta delivered intact with a 3 vessel cord at 10:09 p.m. Pitocin given in the IV fluids. The fundus was massaged to firm. The perineum and vagina were inspected and there were no lacerations. Apgars 9 at 1 minute and 9 at 5 minutes. Epidural analgesia. . Mom and stable to recovery. [place] Baby 1: gender: Male Presentation: vertex Placenta delivery description: Spontaneous cord vessel description: Nuchal Cord (Loose, reduced on the perineum) score (1 min): 9 score (5 min): 9 Plan for aftercare: To routine care
[2020-07-12] MEDS: ACETAMINOPHEN 325 MG TABLET 650 MG PO ×3 (00:45→12:19)
[2020-07-12] MEDS: IBUPROFEN 600 MG TABLET PO ×3 (00:45→12:18)
[2020-07-12 11:08] LABS: Hematocrit 30.7 % (36-46); Hemoglobin 10.5 g/dL (12.0-16.0)
[2020-07-12] MEDS: LANOLIN OINT 7 GM 1 APPLIC TOP (12:13)
[2020-07-12] MEDS: DOCUSATE 100 MG CAPSULE PO (12:13)
[2020-07-12] MEDS: PRENATAL VIT,CALC/IRON/FOLIC 1 TABLET 1 TAB PO (12:13)
--- NOTE | 2020-07-12 17:56 | PM.OBPN.1 ---
Subjective - OB Subjective Patient comments: no complaints and pain well controlled [place] baby status: doing well and nursing well feeding status: exclusively breast feeding Date Patient Seen: 07/12/20 Time Patient Seen: 17:56 Exam Vital Signs (past 8 hours): Generally: Patient lying in bed, no acute distress Fundus: Firm at U -1 Extremities: Trace edema, negative Homans Objective Labs Result Diagrams: 07/12/20 11:00 Labs: Laboratory Results - last 24 hr 07/11/20 07/11/20 07/12/20 17:00 17:00 11:00 WBC 13.2 H RBC 3.68 L Hgb 10.8 L 10.5 L Hct 32.3 L 30.7 L MCV 87.8 MCH 29.4 MCHC 33.5 RDW 14.7 Plt Count 310 Neut % (Auto) 78.0 H Lymph % (Auto) 14.1 L [place] % (Auto) 7.1 Eos % (Auto) 0.5 L Baso % (Auto) 0.3 Neut # (Auto) 10859 H Lymph # (Auto) 1900 [place] # (Auto) 900 Eos # (Auto) 100 Baso # (Auto) 0 Blood Type O Positive Antibody Screen Negative Assessment & Plan Plan day: 1 plan OB: discharge home and follow up 6 weeks Comments: Assessment: 29-year-old post day # 1 status post spontaneous vaginal delivery doing very well. Plan: Discharge to home Follow-up [address] Pierce Time Spent With Patient Time: Total time spent is greater than 50% in coordination of care (as documented) at patient's floor/unit and/or counseling patient: Time with patient: less than 15 minutes
--- NOTE | 2020-07-12 17:58 | P.DS_ITS ---
Discharge Providers Provider Date of admission: 07/11/20 11:01 Discharge Date: 07/12/20 Primary care physician: Yamileth Pierce MD Consults: 07/12/20 22:29 Consult to [employer]board [employer]ter Routine Comment: Discharge provider: Gloria Muir MD Summary Hospital Course Date Patient Seen: 07/12/20 Time Patient Seen: 17:58 Procedures: Epidural analgesia Artificial rupture of membranes Spontaneous vaginal delivery Pitocin augmentation of labor Hospital Course: Patient is a 29-year-old 4 para 3013 day # 1 status post spontaneous vaginal delivery. Patient presented in the afternoon on July 11, 2020 in early to active labor. She received an epidural for pain management. She had an artificial rupture of membranes performed at 17 30. She had Pitocin augmentation when contractions spaced out. She had a spontaneous vaginal delivery without complications. She is discharged home on post day # 1. Peripartum Data Laceration Description: None Episiotomy description: None Procedures: Artificial rupture of membranes Epidural analgesia Spontaneous vaginal delivery Pitocin augmentation of labor complications: none [place] 1: Gender: Male Disposition of : home Status at Discharge Cognitive/behavioral status at discharge: oriented Overall status at discharge: patient is progressing back to baseline Time Spent with Patient Time attestation: Total time spent providing and/or coordinating discharge services: Time spent: Less than 30 minutes Objective Labs Result Diagrams: 07/12/20 11:00 Labs: Laboratory Results - last 24 hr 07/11/20 07/11/20 07/12/20 17:00 17:00 11:00 WBC 13.2 H RBC 3.68 L Hgb 10.8 L 10.5 L Hct 32.3 L 30.7 L MCV 87.8 MCH 29.4 MCHC 33.5 RDW 14.7 Plt Count 310 Neut % (Auto) 78.0 H Lymph % (Auto) 14.1 L [place] % (Auto) 7.1 Eos % (Auto) 0.5 L Baso % (Auto) 0.3 Neut # (Auto) 96093 H Lymph # (Auto) 1900 [place] # (Auto) 900 Eos # (Auto) 100 Baso # (Auto) 0 Blood Type O Positive Antibody Screen Negative Discharge Plan Discharge Plan Patient Disposition: Home Discharge comment: Call with fever, chills or bleeding vaginally more than a pad in an hour Ibuprofen 600 mg every 6 hours Discharge orders & Medications Prescriptions: Continued prenat.vits,mati,[id number]-lfrhx Tablet 1 tab PO BEDTIME RF: 0 Discontinued metronidazole 500 mg tablet 500 mg PO BID Qty: 14 RF: 0 pyridoxine (vitamin B6) 25 mg tablet 25 mg PO BEDTIME RF: 0 ondansetron 4 mg tablet,disintegrating 4 mg PO Q8H PRN (Reason: nausea and vomiting) Qty: 30 RF: 0 Unisom (doxylamine) 25 mg Tablet 25 mg PO BEDTIME PRN (Reason: Insomnia) RF: 0 Follow up/Referrals: Yamileth Pierce MD [Primary Care Provider] - 6 Weeks (Check in 15 minutes prior to appointment Call [phone] with any questions or concerns) Diet/Activity/Treatments Diet: Regular Activity: No intercourse, nothing in the vagina Skin/Wound/Dressing Care Report to your healthcare provider any signs of infection, such as:: chills, fever, increased pain and unusual drainage Visit Report/Discharge Packet Instructions: DI for Labor and Delivery, Vaginal Stand Alone Forms: Discharge: Care Discharge Data Primary Care Provider: Yamileth Pierce
[2020-07-12 18:13] VITALS: BP 120/72; PULSE 80; RESP 18; TEMP 36.7
== END 2020-07-12 19:39 | disposition home or self-care (01) | DRG 807 ==
PROVIDERS: Admitting Provider Family Medicine; PCP Obstetrics & Gynecology; Referring Provider Obstetrics & Gynecology; Visit Provider Obstetrics & Gynecology
DX: O69.81X0 Labor and delivery complicated by cord around neck, without compression, not applicable or unspecified (principal); Z37.0 Single live birth; Z3A.38 38 weeks gestation of pregnancy; Z11.59 Encounter for screening for other viral diseases
CPT/HCPCS: 01967; 36415; 59050; 59400; 59409; 85014; 85018; 85025; 86850; 86900; 86901; 87635; G0379; J2590

== ENCOUNTER → 2022-03-06 16:19 | Outpatient (CLI) | payer SELFPAY | PROVIDERS: PCP Obstetrics & Gynecology; Visit Provider Nurse Practitioner Family | DX: N39.0 Urinary tract infection, site not specified (principal); N89.8 Other specified noninflammatory disorders of vagina | CPT/HCPCS: 87086; 87210 ==

== ENCOUNTER → 2024-11-05 15:12 | Outpatient (CLI) | payer OTHER, SELFPAY ==
--- NOTE | 2024-11-05 15:15 | DI.RAD.S_ITS ---
PROCEDURE: XR ANKLE RT MIN 3V INDICATIONS: R ankle pain TECHNIQUE: 3 views of the ankle were acquired. COMPARISON: None. FINDINGS: Bones: Mild degenerative changes. Plantar enthesopathy. Soft tissues: Soft tissue swelling is present. IMPRESSION: No definite acute displaced fracture or dislocation. Mild degenerative changes and plantar enthesopathy. If there is high concern for further derangement, consider MRI evaluation. Dictated by: Roshan Gagnon M.D. on 11/05/2024 at 15:30 Approved by: Roshan Gagnon M.D. on 11/05/2024 at 15:31
--- NOTE | 2024-11-05 15:15 | DI.RAD.S_ITS ---
PROCEDURE: XR FOOT RT MIN 3V INDICATIONS: R ankle pain TECHNIQUE: 3 views of the foot were acquired. COMPARISON: None. FINDINGS: Bones: Plantar enthesopathy. No acute displaced fracture or dislocation. Soft tissues: No suspicious calcifications. IMPRESSION: No acute radiographic abnormality. Plantar enthesopathy is present. If there is high concern for further derangement, consider MRI evaluation. Dictated by: Roshan Gagnno M.D. on 11/05/2024 at 15:31 Approved by: Roshan Gagnon M.D. on 11/05/2024 at 15:32
== END ==
LOC: RAD 15:14
PROVIDERS: Referring Provider Physician Assistant Medical; Visit Provider Physician Assistant Medical
DX: M25.571 Pain in right ankle and joints of right foot (principal); M79.671 Pain in right foot
CPT/HCPCS: 73610; 73630

== ENCOUNTER → 2024-11-10 16:04 | Outpatient (CLI) | payer OTHER, SELFPAY ==
--- NOTE | 2024-11-10 16:06 | DI.MRI.S_ITS ---
PROCEDURE: MR ANKLE RT WO CON INDICATIONS: fall 6 mos ago, limited ROM flexion, pain @ lis carter/ankle TECHNIQUE: Noncontrast sagittal T1 spin echo and T2 fast spin echo with fat saturation, axial proton density fast spin echo and T2 fast spin echo with fat saturation, coronal T1 spin echo and T2 fast spin echo with fat saturation through the ankle/hindfoot. COMPARISON: Located Within [facility], CR, XR ANKLE RT MIN 3V, 11/05/2024, 15:41. FINDINGS: Image quality: Excellent. Bones and joints: Areas of osseous edema are seen at the medial malleolus, medial navicular, and at the anterior process of the calcaneus. No focal fracture line is seen. No hindfoot coalitions. No osteochondral injuries of the talar dome. Lisfranc ligament appears to be intact. Medial structures: The deltoid ligament and the spring ligament complex are intact. There is moderate tenosynovitis of the posterior tibialis tendon with suspected focal partial intrasubstance tearing distal to the medial malleolar tip (best seen on series 3, image 19). Mild flexor digitorum longus tenosynovitis. The flexor hallucis longus tendon is intact. The posterior tibial neurovascular bundle appears normal within the tarsal tunnel, without extrinsic mass effect. Lateral structures: Remote prior low-grade sprains of the anterior talofibular ligament and the calcaneofibular ligament. The posterior talofibular ligament is intact. The anterior and posterior tibiofibular ligaments are intact. Moderate tendinosis and tenosynovitis of the peroneus brevis and longus tendons. There is normal fatty signal in the sinus tarsi. Anterior structures: The tibialis anterior, extensor hallucis longus, and extensor digitorum longus tendons appear intact. Posterior and plantar structures: Mild Achilles tendinosis. The proximal plantar fascia is thickened with focal fluid signal at the origin and minimal surrounding soft tissue and osseous edema. Small plantar calcaneal enthesophyte without fracture. No abductor digiti minimi muscle atrophy to suggest Morgan neuropathy. IMPRESSION: 1. Areas of osseous edema at the medial malleolus, medial navicular, and anterior process of the calcaneus are suspicious for osseous contusions versus traction trabecular bone injury. No fracture line is seen. 2. Low-grade partial intrasubstance tearing of the distal posterior tibialis tendon with superimposed moderate tenosynovitis. Mild flexor digitorum longus tenosynovitis. 3. Subacute or chronic low-grade sprains of the anterior talofibular ligament and the calcaneofibular ligament. 4. Moderate tendinosis and tenosynovitis of the peroneus brevis and longus tendons. 5. Low-grade partial tearing of the proximal plantar fascia at the origin with mild surrounding soft tissue and osseous edema, superimposed on moderate chronic fasciitis. 6. Mild Achilles tendinosis. Approved by: Alonzo Conway M.D. on 11/11/2024 at 10:05
--- NOTE | 2024-11-10 16:06 | DI.MRI.S_ITS ---
PROCEDURE: MR FOOT RT WO CON INDICATIONS: fall 6 mos ago, limited ROM flexion, pain @ lis carter/ankle TECHNIQUE: Multiphasic, multisequence MRI of the forefoot was performed, without intravenous contrast administration. COMPARISON: [facility], CR, XR FOOT RT MIN 3V, 11/05/2024, 15:41. FINDINGS: Image quality: Excellent. Bones and joints: Mild osseous edema in the navicular and anterior process of the calcaneus is included at the margins of the field of view of this exam. No other acute trabecular bone injury in the midfoot or forefoot. The sesamoid bones appear in expected positions, without internal edema. No metatarsophalangeal joint degeneration. No intraosseous lesions. Soft tissues: Mild nonspecific subcutaneous edema at the dorsal aspect of the foot overlying the 2nd and 3rd metatarsals. The visualized plantar foot muscles demonstrate normal signal and bulk. Visualized flexor and extensor tendons appear intact, without tenosynovitis. The distal insertions of the peroneus brevis and longus tendons appear intact. The principal Lisfranc ligament appears intact. No soft tissue ganglion cysts or bursal fluid collections. Sagittal images demonstrate no evidence for plantar plate tears. IMPRESSION: No acute trabecular bone injury in the midfoot or forefoot. Lisfranc ligament is intact. No significant ligament or tendon injury is seen. Approved by: Alonzo Conway M.D. on 11/11/2024 at 10:11
== END ==
LOC: MRI 16:05
PROVIDERS: Referring Provider Physician Assistant; Visit Provider Physician Assistant
DX: S93.411A Sprain of calcaneofibular ligament of right ankle, initial encounter (principal); S93.491A Sprain of other ligament of right ankle, initial encounter; S96.811A Strain of other specified muscles and tendons at ankle and foot level, right foot, initial encounter; M65.971 Unspecified synovitis and tenosynovitis, right ankle and foot; R60.0 Localized edema; M72.2 Plantar fascial fibromatosis; M79.671 Pain in right foot; G89.29 Other chronic pain; W19.XXXA Unspecified fall, initial encounter
CPT/HCPCS: 73718; 73721

== ENCOUNTER → 2025-03-30 16:04 | Outpatient (CLI) | payer OTHER, SELFPAY | PROVIDERS: Visit Provider Chiropractor | DX: R30.0 Dysuria (principal) | CPT/HCPCS: 87086 ==